=== PATIENT | male | born 1980 | race Caucasian/White ===

== ENCOUNTER 2020-01-11 09:42 | Emergency (ER) | payer OTHER ==
[~2020-01-11] VITALS: Ht 177.8 cm; Wt 99.8 kg
[2020-01-11 10:16] LABS: ABSOLUTE EOSINOPHILS 0.2 thou/uL (0.0-0.7); ABSOLUTE LYMPHOCYTES 3.1 thou/uL (0.8-5.3); ABSOLUTE MONOCYTES 0.9 thou/uL (0.0-1.2); BASOPHILS 0.3 %; EOSINOPHILS 2.3 %; HEMATOCRIT 44.3 % (42.0-52.0); HEMOGLOBIN 15.5 gm/dL (14.0-18.0); LYMPHOCYTES 30.5 %; MCH 29.3 pg (26.0-34.0); MCHC 34.9 g/dL (28.0-37.0); MCV 83.8 fL (80.0-100.0); MONOCYTES 8.8 %; MPV 7.4 fl. (7.2-11.1); NUCLEATED RBCS 0 /100WBC; PLATELET COUNT* 364 thou/uL (150-400); POLYS 58.1 %; RBC 5.29 mil/uL (4.50-6.00); WBC 10.3 thou/uL (4.0-11.0)
[2020-01-11 10:28] LABS: APTT 27.6 Seconds (25.0-31.3)
[2020-01-11 10:29] LABS: CALCIUM 8.8 mg/dL (8.5-10.1); CREATININE 0.9 mg/dL (0.6-1.3)
[2020-01-11 10:42] LABS: ALBUMIN 4.2 g/dL (3.4-5.0); CK-MB MASS 1.8 ng/mL (<0.5-3.6); TOTAL BILIRUBIN 0.5 mg/dL (<0.1-1.0)
[2020-01-11 10:57] VITALS: BP 143/88
--- NOTE | 2020-01-11 15:41 | EKG ---
[place] [address] ELECTROCARDIOGRAM REPORT Name: KADEEMKAMRAN Kam Room: [facility]#: [id number] Admission: 01/11/20 Attend Phys: Discharge: 01/11/20 Date of : 78 Date of Service: 01/11/20 0945 Report #: [id number] THIS REPORT FOR: //name// [facility] ED Test Date: 2020-01-11 Test Time: 09:45:59 Pat Name: KAMRAN QUAN Department: Room: Gender: [employer]ician: Mavis : 1980 Requested By: Gustavo Weems Order Number: [id number] MD: Sim Burnett Measurements Intervals [place] Rate: 82 P: 36 FL: 169 QRS: -42 QRSD: 115 T: 12 QT: 374 QTc: 437 Interpretive Statements Sinus rhythm left anterior fasicular block Baseline wander in lead(s) II,III,aVR,aVL,aVF,V1,V2,V4,V5,V6 No previous ECG available for comparison Electronically Signed On 01-11-2020 15:39:18 CDT by Sim Burnett [email or web address] <ELECTRONICALLY SIGNED> By: Sim Burnett MD, [facility] 01/11/20 1539 0945 0945 Sim Burnett MD, [facility] /EPI
== END 2020-01-11 10:58 | disposition home or self-care (01) ==
LOC: M.ERS 09:42
PROVIDERS: Family Medicine
DX: R07.89 Other chest pain (principal); I10 Essential (primary) hypertension; F17.210 Nicotine dependence, cigarettes, uncomplicated